=== PATIENT | female | born 1965 | race Caucasian/White ===

== ENCOUNTER 2016-09-01 09:36 | Emergency (ER) | payer BC ==
[2015-12-16 17:33] VITALS: BMI 24.7
[~2016-09-01 09:36] MED LIST: BAYER CHEWABLE81 MG PO; ULTRAM50 MG PO; ZESTORETIC 20/21 TAB PO
== END 2016-09-01 11:08 | disposition home or self-care (01) ==
LOC: D.ER 09:36
DX: M25.551 Pain in right hip (principal); I10 Essential (primary) hypertension

== ENCOUNTER 2017-08-27 17:58 | Observation (INO) | payer BC ==
[~2017-08-27] VITALS: Ht 171.4 cm; Wt 80.0 kg
--- NOTE | ~2017-08-27 | DS ---
PATIENT:LOGAN BARKER :65 MEDICAL RECORD: [id number] DISCHARGE SUMMARY ADMISSION DATE: 08/27/17 DISCHARGE DATE: 08/28/17 DIAGNOSES: 1. Atypical chest pain. 2. Family history of coronary artery disease. 3. Smoking history. HOSPITAL COURSE: Mrs. Barker presents with atypical chest pain that lasted for 2 hours, ruled out by normal troponins. Her EKG was abnormal with T-wave inversion anterolaterally, but there were no changes. We will risk stratify with stress testing. Cardiolite imaging as an outpatient. 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 [address] [place] [address]
--- NOTE | ~2017-08-27 | HP ---
PATIENT: LOGAN BARKER MEDICAL RECORD: [id number] ACCOUNT: [id number] LOCATION:[address] : 65 ADMISSION DATE: 08/27/17 HISTORY AND PHYSICAL EXAMINATION DIAGNOSES: 1. Chest pain. 2. Family history of coronary disease. 3. Smoking history. HISTORY: Ms. Barker presents with chest pain, just came on yesterday. It was atypical stabbing pain on the right side of her chest as opposed to the left side. She had it for approximately 2 hours. She has not had any recurrences of the chest discomfort. She has family history of coronary disease and smoking history. REVIEW OF SYSTEMS: The patient reports easy bruising but reports no swollen glands. The patient reports no fever, no night sweats, no significant weight gain, no significant weight loss. No significant exercise tolerance. The patient reports no dry eyes, no irritation, no vision change. Patient reports no difficulty hearing and no ear pain. Patient reports no frequent nose bleeds or nose and sinus problems. Patient reports on arm pain on exertion. No shortness of breath while lying down. No history of heart murmur. Patient reports no cough, no wheezing or coughing up blood. Patient reports no abdominal pain, no vomiting. Normal appetite. No diarrhea and not vomiting blood. No nausea and no constipation. Patient reports no incontinence. No difficulty urinating. No hematuria. No increased frequency. Patient reports no muscle aches. No weakness, no arthralgias, no back pain. No swelling of the extremities. Patient reports no abnormal mole, no jaundice, no rashes. Reports no loss of consciousness. No weakness and no numbness. No seizures, dizziness, or headaches. The patient reports no depression, no sleep disturbance, feeling safe in a relationship and no alcohol abuse. Patient reports on fatigue. Reports no runny nose or sinus pressure. No itching, no hives, and no frequent sneezing. PHYSICAL EXAMINATION: GENERAL APPEARANCE: Well-nourished, well-developed, appears stated age. Level of distress, comfortable. PSYCHIATRIC: Mental status, alert, normal affect. Orientation, oriented to time, place and person. EYES: Lids and conjunctiva, noninjected. No discharge, no pallor. ENT: Lips, teeth, gums, normal dentition. Oropharynx, no cyanosis, no pallor. NECK: Carotid arteries, bilateral normal upstroke, no bruits, no thrills. JUGULAR VEINS: No jugular venous pressure or distention. CERVICAL LYMPH NODES: Nontender, nonenlarged. THYROID: Not enlarged. Nontender. No nodules. LUNGS: Respiratory effort, unlabored. CHEST: Normal curvature. No thoracic deformity. No chest wall tenderness. Percussion, resonant. Auscultation, clear. No wheezes, no rales, no rhonchi. CARDIOVASCULAR: Precordial exam, nondisplaced. No heaves or pericardial thrills. Rate and rhythm, regular. Heart sounds, normal S1, normal S2. No S3, no gallop, no rub. Systolic murmur, not heard. Diastolic murmur, not heard. EXTREMITIES: No cyanosis, no edema. Peripheral pulses, full and equal in all extremities, except as noted. No bruits appreciated. ABDOMEN: Soft, nondistended. Normal aorta. No bruit. Nontender. No masses. HISTORY AND PHYSICAL [id number] MJ,LOGAN K Liver, nontender, no hepatomegaly. Spleen, nontender, no splenomegaly. MUSCULOSKELETAL: No joint tenderness. No joint swelling. No erythema. NEUROLOGICAL: Normal gait, normal strength, normal tone. SKIN: Warm and dry. OVERALL IMPRESSION: Chest pain, atypical. She will be admitted overnight for observation. Draw serial enzymes. If all are normal, would risk stratify with stress testing as an outpatient. Her EKG does have slight T wave inversions anterolaterally. She has not had comparison EKG in the past. TRANSINT:[id number] Voice Confirmation ID: [id number] DOCUMENT ID: [id number] KACIE MENON MD at 1105 CC: [id number] DICTATION DATE: 08/28/17 1030 CARETAKER RESORT: 08/28/17 1200 DIS IN 08/28/17 [facility] [id number] [place] [address]
[2017-08-27] MEDS ORDERED: ADIPEX-P37.5 MG PO (18:24)
[2017-08-27 18:57] LABS: BASOPHILS 0.3 % (0-2); EOSINOPHILS 1.5 % (0-7); HEMATOCRIT 43.6 % (36.0-48.0); HEMOGLOBIN 15.9 g/dL (12-16); IMMATURE GRANULOCYTES 0.2 % (0-5); LYMPHOCYTES 30.4 % (15-50); MCH 32.1 pg (26.0-34.0); MCHC 36.5 g/dL (31.0-37.0); MCV 87.9 fL (80.0-100.0); MEAN PLATELET VOLUME 9.5 fL (7.4-10.4); MONOCYTES 7.8 % (2-11); NEUTROPHILS 59.8 % (40-80); RBC 4.96 10x6/uL (4.00-5.40); RDW 12.5 % (11.5-14.5); WBC 10.3 10x3/uL (4.8-10.8)
[2017-08-27 19:18] VITALS: BP 147/75
[2017-08-27 19:18] LABS: ALBUMIN 4.1 g/dL (3.4-5.0); ALKALINE PHOSPHATASE 58 U/L (46-116); ALT (SGPT) 20 U/L (10-68); CALC OSMOLALITY 268 mosm/kg (275-300); CALCIUM 9.6 mg/dL (8.5-10.1); CARBON DIOXIDE 27.3 mmol/L (21.0-32.0); CHLORIDE - SERUM 96 mmol/L (98-107); CREATININE - SERUM 1.1 mg/dL (0.6-1.3); POTASSIUM - SERUM 3.1 mmol/L (3.5-5.1); PROTEIN - SERUM 7.7 g/dL (6.4-8.2); SODIUM 132 mmol/L (136-145); UREA NITROGEN 25 mg/dL (7-18); eGFR NON AFRICAN AMERICAN 55 mL/min (90-120)
[2017-08-27 19:23] LABS: PLATELET COUNT 332 10x3/uL (130-400)
[2017-08-27 19:25] LABS: GLUCOSE 101 mg/dL (74-106)
[2017-08-27 19:35] LABS: CKMB 2.1 U/L (0.0-3.6); CREATINE KINASE 130 UL (21-215); TROPONIN-I < 0.017 ng/mL (0.000-0.060)
[2017-08-27 20:00] VITALS: BP 121/70
[2017-08-27 21:00] VITALS: BP 115/53
[2017-08-27 22:00] VITALS: BP 143/68
[2017-08-28] VITALS: BP 116/67
[2017-08-28 01:14] LABS: CKMB 1.8 U/L (0.0-3.6); CREATINE KINASE 118 UL (21-215); TROPONIN-I < 0.017 ng/mL (0.000-0.060)
[2017-08-28 03:18] VITALS: Ht 171.4 cm; Wt 80.0 kg
[2017-08-28 04:00] VITALS: BP 102/62
[2017-08-28 06:54] LABS: CKMB 1.7 U/L (0.0-3.6); CREATINE KINASE 113 UL (21-215); TROPONIN-I < 0.017 ng/mL (0.000-0.060)
== END 2017-08-28 11:50 | disposition home or self-care (01) ==
LOC: D.ER 17:58 → D.EDHOLD 22:15 → OBSVTIME 22:15 → D.M2 22:15
PROVIDERS: Emergency Medicine; Family Medicine
DX: R07.89 Other chest pain (principal); Z82.49 Family history of ischemic heart disease and other diseases of the circulatory system; Z87.891 Personal history of nicotine dependence; R94.31 Abnormal electrocardiogram [ECG] [EKG]; I10 Essential (primary) hypertension

== ENCOUNTER 2019-07-10 15:09 | Emergency (ER) | payer BC ==
[~2019-07-10] VITALS: Ht 171.4 cm; Wt 80.9 kg
[~2019-07-10 15:09] MED LIST changes: +ADIPEX-P37.5 MG PO
[2019-07-10 15:36] VITALS: Ht 171.4 cm; Wt 80.9 kg
[2019-07-10 16:03] LABS: BASOPHILS 0.3 % (0-2); IMMATURE GRANULOCYTES 0.3 % (0-5); LYMPHOCYTES 32.6 % (15-50); MCH 31.4 pg (26.0-34.0); MCHC 34.1 g/dL (31.0-37.0); MCV 92.1 fL (80.0-100.0); MEAN PLATELET VOLUME 9.1 fL (7.4-10.4); MONOCYTES 6.6 % (2-11); NEUTROPHILS 58.2 % (40-80); PLATELET COUNT 351 10x3/uL (130-400); RBC 4.78 10x6/uL (4.00-5.40); WBC 10.1 10x3/uL (4.8-10.8)
[2019-07-10 16:11] LABS: PROTIME 13.2 SECONDS (11.6-15.0)
[2019-07-10 16:12] LABS: APTT 29.8 SECONDS (22.8-39.4)
[2019-07-10 16:21] LABS: CALC OSMOLALITY 280 mosm/kg (275-300); CALCIUM 9.4 mg/dL (8.5-10.1); CARBON DIOXIDE 32.7 mmol/L (21.0-32.0); CHLORIDE - SERUM 102 mmol/L (98-107); CREATININE - SERUM 0.9 mg/dL (0.6-1.3); GLUCOSE 102 mg/dL (74-106); POTASSIUM - SERUM 3.7 mmol/L (3.5-5.1); SODIUM 141 mmol/L (136-145); UREA NITROGEN 13 mg/dL (7-18); eGFR NON AFRICAN AMERICAN 69 mL/min (90-120)
[2019-07-10 16:40] LABS: ALBUMIN 3.8 g/dL (3.4-5.0); ALKALINE PHOSPHATASE 66 U/L (30-120); ALT (SGPT) 39 U/L (10-68); BILIRUBIN - TOTAL 0.27 mg/dL (0.2-1.3); CREATINE KINASE 83 UL (21-215); MAGNESIUM - SERUM 2.2 mg/dL (1.8-2.4); PRO BNP 37 pg/mL (0-125); PROTEIN - SERUM 7.6 g/dL (6.4-8.2)
[2019-07-10 16:41] LABS: TROPONIN-I < 0.017 ng/mL (0.000-0.060)
[2019-07-10 17:16] LABS: BILIRUBIN NEGATIVE (NEGATIVE); GLUCOSE NEGATIVE (NEGATIVE); KETONE NEGATIVE (NEGATIVE); NITRITE NEGATIVE (NEGATIVE); SPECIFIC GRAVITY 1.005 (1.005-1.020); UROBILINOGEN NORMAL (NORMAL)
[2019-07-10 17:22] LABS: BACTERIA FEW /hpf (NEGATIVE); EPITHELIAL CELLS NSEEN /hpf (0-5); RED CELLS - URINE 0-5 /hpf (0-5); WHITE CELLS - URINE NSEEN /hpf (NEGATIVE)
[2019-07-10] MEDS ORDERED: KLONOPIN0.5 MG PO (17:47)
[2019-07-10 18:01] VITALS: BP 144/90
== END 2019-07-10 18:02 | disposition home or self-care (01) ==
LOC: D.ER 15:09
PROVIDERS: Family Medicine
DX: F41.8 Other specified anxiety disorders (principal); R07.89 Other chest pain; R11.0 Nausea; F17.200 Nicotine dependence, unspecified, uncomplicated